=== PATIENT | female | born 1960 | race Caucasian/White ===

== ENCOUNTER → 2018-05-13 | Outpatient (CLI) | payer OTHER ==
[~2018-05-13] MED LIST: LISINOPRIL10 MG PO; LOPRESSOR50 PO; POTASSIUM20 PO; SYNTHROID100 MC1 PO
== END ==
LOC: M.RAD 15:09
DX: Z12.31 Encounter for screening mammogram for malignant neoplasm of breast (principal)

== ENCOUNTER 2018-05-19 22:56 | Emergency (ER) | payer OTHER ==
[~2018-05-19] VITALS: Ht 160 cm; Wt 68.0 kg
[2018-05-19] MEDS ORDERED: SYNTHROID100 MC1 PO (23:17)
[2018-05-19] MEDS ORDERED: LOPRESSOR50 PO (23:18)
[2018-05-19] MEDS ORDERED: POTASSIUM20 PO (23:18)
[2018-05-19 23:34] LABS: URINE BILIRUBIN NEGATIVE (Negative); URINE BLOOD 1+ (Negative); URINE CLARITY CLEAR; URINE COLOR YELLOW; URINE GLUCOSE-RANDOM NEGATIVE (Negative); URINE KETONES NEGATIVE (Negative); URINE LEUKOCYTES-REFLEX NEGATIVE (Negative); URINE NITRITE-REFLEX NEGATIVE (Negative); URINE PROTEIN NEGATIVE (Negative); URINE SPECIFIC GRAVITY <= 1.005 (1.005-1.030); URINE UROBILINOGEN 0.2 E.U./dl (0.2-1.0)
[2018-05-19 23:56] LABS: ABSOLUTE BASOPHILS 0.1 thou/uL (0.0-0.2); ABSOLUTE EOSINOPHILS 0.2 thou/uL (0.0-0.7); ABSOLUTE LYMPHOCYTES 1.8 thou/uL (0.8-5.3); ABSOLUTE MONOCYTES 0.6 thou/uL (0.0-1.2); ABSOLUTE NEUTROPHILS 3.3 thou/uL (1.6-8.1); EOSINOPHILS 2.6 %; HEMATOCRIT 41.2 % (37.0-47.0); HEMOGLOBIN 13.8 gm/dL (12.0-15.0); LYMPHOCYTES 30.2 %; MCH 30.1 pg (26.0-34.0); MCHC 33.6 g/dL (28.0-37.0); MCV 89.7 fL (80.0-100.0); MONOCYTES 10.4 %; MPV 10.3 fl. (7.2-11.1); NUCLEATED RBCS 0 /100WBC; PLATELET COUNT* 139 thou/uL (150-400); POLYS 55.8 %; RBC 4.59 mil/uL (4.20-5.00); RDW-CV 13.5 % (10.5-14.5)
[2018-05-20 00:01] LABS: ANION GAP 6 mmol/L (7-16); BUN 20 mg/dL (7-18); CALCIUM 9.1 mg/dL (8.5-10.1); CHLORIDE 103 mmol/L (98-107); CO2 28 mmol/L (21-32); CREATININE 1.2 mg/dL (0.6-1.3); GLUCOSE 116 mg/dL (70-99); POTASSIUM 3.6 mmol/L (3.5-5.1); SODIUM 137 mmol/L (136-145)
[2018-05-20 00:12] LABS: ALBUMIN 3.8 g/dL (3.4-5.0); ALKALINE PHOSPHATASE 90 U/L (46-116); NT-PRO BRAIN NAT PEPTIDE 107 pg/mL (<300); SGOT 24 U/L (15-37); SGPT 26 U/L (30-65); TOTAL BILIRUBIN 0.6 mg/dL (<0.1-1.0); TOTAL PROTEIN 7.3 g/dL (6.4-8.2); TROPONIN-I LEVEL <0.06 ng/mL (<0.06)
[2018-05-20 00:13] LABS: CASTS None Seen /LPF (None Seen); SQUAMOUS NONE SEEN /LPF (0-3); URINE WBC-REFLEX None Seen /HPF (0-5)
[2018-05-20 00:14] LABS: BACTERIA-REFLEX None Seen /HPF (None Seen); CRYSTALS None Seen /LPF (None Seen); URINE RBC 0-2 Rare /HPF (0-2)
[2018-05-20] MEDS ORDERED: LISINOPRIL10 MG PO (00:31)
[2018-05-20 01:45] VITALS: BP 162/97
--- NOTE | 2018-05-20 19:33 | EKG ---
[place] [address] ELECTROCARDIOGRAM REPORT Name: JENNIFER SAGASTUME Room: [facility]#: [id number] Admission: 05/19/18 Attend Phys: Discharge: 05/20/18 Date of : 64 Report #: [id number] THIS REPORT FOR: //name// [facility] ED Test Date: 2018-05-19 Test Time: 23:27:40 Pat Name: JENNIFER SAGASTUME Department: Room: Gender: F Hotel Assistant General Manager: COREY : 1960 Requested By: Mireille Lawler Order Number: [id number] MD: Silvio Ramachandran Measurements Intervals [place] Rate: 80 P: 46 IN: 178 QRS: 14 QRSD: 94 T: 31 QT: 397 QTc: 458 Interpretive Statements Sinus rhythm Compared to ECG 06/26/2007 07:29:45 Sinus tachycardia no longer present Electronically Signed On 05-20-2018 19:33:29 CDT by Silvio Ramachandran [email or web address] <ELECTRONICALLY SIGNED> By: Silvio Ramachandran MD, [facility] 05/20/18 [id number] Silvio Ramachandran MD, FACC /EPI
== END 2018-05-20 01:45 | disposition home or self-care (01) ==
LOC: M.ERS 22:56
PROVIDERS: Nurse Practitioner Family
DX: I10 Essential (primary) hypertension (principal); Z88.1 Allergy status to other antibiotic agents; Z88.8 Allergy status to other drugs, medicaments and biological substances

== ENCOUNTER → 2019-06-13 | Outpatient (CLI) | payer OTHER | LOC: M.RAD 15:00 | DX: Z12.31 Encounter for screening mammogram for malignant neoplasm of breast (principal) ==

== ENCOUNTER → 2020-07-15 | Outpatient (CLI) | payer OTHER | LOC: M.RAD 11:00 | PROVIDERS: ATTEND Nurse Practitioner Family | DX: Z12.31 Encounter for screening mammogram for malignant neoplasm of breast (principal) ==

== ENCOUNTER → 2021-07-15 | Outpatient (CLI) | payer OTHER | LOC: M.RAD 10:35 | PROVIDERS: ATTEND Internal Medicine | DX: Z12.31 Encounter for screening mammogram for malignant neoplasm of breast (principal); N64.89 Other specified disorders of breast ==